=== PATIENT | female | born 1965 | race Caucasian/White ===

== ENCOUNTER 2020-03-04 00:48 | Outpatient (CLI) | payer BC, SELFPAY ==
[2020-03-04 18:19] LABS: SARS-CoV-2 RNA PCR Negative
== END 2020-03-04 00:49 | disposition home or self-care (01) ==
LOC: ANHCOVIDDT 00:48
PROVIDERS: PCP Family Medicine; Visit Provider Internal Medicine Gastroenterology
DX: Z01.812 Encounter for preprocedural laboratory examination (principal); Z20.828 Contact with and (suspected) exposure to other viral communicable diseases
CPT/HCPCS: 87635; C9803; U0003

== ENCOUNTER 2020-03-06 01:17 | Day surgery (SDC) | payer BC, SELFPAY ==
[2020-02-27 11:02] VITALS: BMI 28.0
[2020-03-06 08:04] VITALS: BP 134/70; PULSE 65; RESP 18; TEMP 36.6; O2SAT 99; BMI 26.9
[2020-03-06 08:29] LABS: Glucose Point of Care 167 (65-105)
[2020-03-06] MEDS: LACTATED RINGERS 1,000 ML 150 ML IV CONT (08:31)
--- NOTE | 2020-03-06 08:42 | WPDGICN ---
Assessment and Plan Assessment and plan (1) History of colon polyps: Code(s): Z86.010 - Personal history of colonic polyps Status: Acute Assessment and Plan: patient has a history of multiple colon polyps most of which were adenomatous in 2017. She presents today for surveillance colonoscopy 3 years to later. Plan is for high-fiber diet. Repeat colonoscopy now and at intervals in the future. Family members are also encouraged to seek screening. GI Consult Note Consult date/time: 03/06/20 08:42 HPI: Mariam Miller is a 54 year old female Seen in evaluation at the request of Dr. Faustino Gallardo. patient presents for neoplasia screening. She has a history of adenomatous colon polyps removed from the colon 3 years ago. Her current weight appetite bowel movements are normal. She denies abdominal pain. She has had no recent bleeding. Her family history is noncontributory. Review of Systems Review of Systems: All systems reviewed & are unremarkable except as noted in HPI and below Meds Home Medications and Allergies Home Medications Medication Instructions Recorded Confirmed Type atorvastatin 10 mg PO DAILY 02/27/20 02/27/20 History cetirizine [Zyrtec] 10 mg PO DAILY 02/27/20 02/27/20 History lisinopril 20 mg PO DAILY 02/27/20 02/27/20 History meloxicam 15 mg PO DAILY PRN 02/27/20 02/27/20 History metformin 500 mg PO BID 02/27/20 02/27/20 History paroxetine HCl 25 mg PO DAILY 02/27/20 02/27/20 History Allergies Allergy/AdvReac Type Severity Reaction Status Date / Time No Known Allergies Allergy Verified 03/06/20 08:15 Vital Signs Vital Signs - 24 hr 03/06/20 08:04 Temperature 97.8 F Pulse Rate 65 Respiratory Rate 18 Blood Pressure 134/70 Pulse Oximetry 99 Exam Narrative: Exam Narrative: Physical exam reveals patient to be alert. Vital signs stable. HEENT exam unremarkable. Lungs are clear to auscultation and percussion. Heart is without murmur or extra sounds. Abdominal exam bowel sounds are present soft nontender with no hepatosplenomegaly. Digital external rectal exam is normal
--- NOTE | 2020-03-06 08:48 | WPDANESEPPF ---
Anes - Initial Pre Proc Eval Procedure: Operation Date: 03/06/20 09:00 Proposed Procedures p Screening Colonoscopy - Roland Boo MD Date/Time: 03/06/20 08:48 Surgeon: Roland Boo MD Pre Op Diagnosis: Neoplasm Screening/ Hx Colon Polyps Patient Data Age: 54 Gender: F Height: 5 ft Weight: 62.5 kg Last Vital Signs Temp 97.8 F 03/06/20 08:04 Pulse 65 03/06/20 08:04 Resp 18 03/06/20 08:04 BP 134/70 03/06/20 08:04 Pulse Ox 99 03/06/20 08:04 Allergies Allergy/AdvReac Type Severity Reaction Status Date / Time No Known Allergies Allergy Verified 03/06/20 08:15 Home Medications Medication Instructions Recorded Confirmed Type atorvastatin 10 mg PO DAILY 02/27/20 02/27/20 History cetirizine [Zyrtec] 10 mg PO DAILY 02/27/20 02/27/20 History lisinopril 20 mg PO DAILY 02/27/20 02/27/20 History meloxicam 15 mg PO DAILY PRN 02/27/20 02/27/20 History metformin 500 mg PO BID 02/27/20 02/27/20 History paroxetine HCl 25 mg PO DAILY 02/27/20 02/27/20 History Laboratory Tests 03/06/20 08:28 POC Capillary Glucose 167 mg/dl H mg/dl (65-105) Patient hx anesthesia problems: none Family hx anesthesia problems: none PMFSH Past Medical History Medical History (Updated 03/06/20 @ 08:48 by Perez Avila MD) Anxiety Diabetes Hyperlipidemia Hypertension Anes - Eval Final PreProcedure Day of Procedure 03/06/20 08:48 Patient weight: normal Heart: regular rate and rhythm Lungs: clear to auscultation Airway: Mallampati scale class II Neurological: alert and oriented Last oral intake: >/= 8 hours ASA classification: II Emergent: no Anesthetic plan: proceed Anesthesia type and monitoring: general GIVS and standard monitoring Informed Consent: The patient's anesthetic plan and its attendant risks and benefits were discussed with the patient/family/POA. Questions were solicited and answers provided to the satisfaction of the patient/family/POA.
[2020-03-06 09:28] VITALS: BP 100/66; PULSE 78; RESP 16; O2SAT 97
[2020-03-06 09:38] VITALS: BP 112/77; PULSE 63; RESP 16; O2SAT 98
[2020-03-06 09:48] VITALS: BP 130/76; PULSE 75; RESP 16; O2SAT 100
== END 2020-03-06 10:05 | disposition home or self-care (01) ==
PROVIDERS: PCP Family Medicine; Visit Provider Internal Medicine Gastroenterology
PROC: 0DJD8ZZ Inspection of Lower Intestinal Tract, Via Natural or Artificial Opening Endoscopic (ICD-10-PCS; CPT 45378; principal; 2020-03-06 09:00)
DX: Z12.11 Encounter for screening for malignant neoplasm of colon (principal); D12.1 Benign neoplasm of appendix; D12.3 Benign neoplasm of transverse colon; K63.5 Polyp of colon; K64.8 Other hemorrhoids; I10 Essential (primary) hypertension; E78.5 Hyperlipidemia, unspecified; E11.9 Type 2 diabetes mellitus without complications; Z79.84 Long term (current) use of oral hypoglycemic drugs; F41.9 Anxiety disorder, unspecified; Z79.899 Other long term (current) drug therapy
CPT/HCPCS: 45385; 88305; J2704; J7120

== ENCOUNTER → 2020-10-20 00:27 | Outpatient (CLI) | payer BC, SELFPAY ==
[2020-10-20 20:45] LABS: SARS-CoV-2 RNA PCR Negative
== END ==
PROVIDERS: PCP Family Medicine; Visit Provider Internal Medicine Gastroenterology
DX: Z01.812 Encounter for preprocedural laboratory examination (principal); Z20.822 Contact with and (suspected) exposure to COVID-19
CPT/HCPCS: C9803; U0003; U0005

== ENCOUNTER 2020-10-23 00:35 | Day surgery (SDC) | payer BC, SELFPAY ==
[2020-10-13 13:18] VITALS: BMI 27.3
[2020-10-23 07:27] VITALS: BP 130/73; PULSE 88; RESP 16; TEMP 36.1; O2SAT 99; BMI 27.6
--- NOTE | 2020-10-23 07:29 | PM.HPGS ---
History of Present Illness History of Present Illness Consent: Risks, benefits, and alternatives have been discussed and questions answered. Patient agrees to proceed with procedure. Chief complaint: neoplasm screening, hx colon polyps Narrative: Mariam iMller is a 55 year old female who had multiple polyps removed fast year. One polyp was not completely removed and she returns now for definitive resection Review of Systems Review of Systems: All systems reviewed & are unremarkable except as noted in HPI and below PMFSH Past Medical History Medical History Anxiety Diabetes Hyperlipidemia Hypertension Social History Social History Smoking packs per day: 1 Smoking cigarettes per day: 20.0 Years smoked: 30 Smoking pack-years: 30.00 Smoking status: Current every day smoker Tobacco type: cigarettes Substance use type: does not use Living arrangements: with family Gender identity (if verbalized by the patient): Female Spiritual care concerns: No Meds Home Medications and Allergies Home Medications Medication Instructions Recorded Confirmed Type atorvastatin 10 mg PO DAILY 02/27/20 10/23/20 History cetirizine [Zyrtec] 10 mg PO DAILY 02/27/20 10/23/20 History lisinopril 20 mg PO DAILY 02/27/20 10/23/20 History meloxicam [Mobic] 15 mg PO DAILY PRN 02/27/20 10/23/20 History metformin 500 mg PO BID 02/27/20 10/23/20 History paroxetine HCl [Paxil CR] 25 mg PO DAILY 02/27/20 10/23/20 History Allergies Allergy/AdvReac Type Severity Reaction Status Date / Time No Known Allergies Allergy Verified 10/23/20 07:14 Exam Resp: Auscultation: clear to auscultation bilaterally Cardio: Rate: regular rate Rhythm: regular rhythm GI: GI Palp: Yes Soft to palpation and No Tenderness to palpation present (GI) Assessment and Plan Assessment and plan (1) History of colon polyps: Code(s): Z86.010 - Personal history of colonic polyps Status: Acute
[2020-10-23] MEDS: LACTATED RINGERS 1,000 ML 150 ML IV CONT (07:39)
[2020-10-23 07:41] LABS: Glucose Point of Care 204 (65-105)
--- NOTE | 2020-10-23 08:10 | WPDANESEPPF ---
Anes - Initial Pre Proc Eval Procedure: Operation Date: 10/23/20 08:30 Proposed Procedures p Screening Colonoscopy - Landon Kong MD Date/Time: 10/23/20 08:10 Surgeon: Landon Kong MD Pre Op Diagnosis: neoplasm screening, hx colon polyps Patient Data Age: 55 Gender: F Height: 5 ft Weight: 64.2 kg Last Vital Signs Temp 97 F L 10/23/20 07:27 Pulse 88 10/23/20 07:27 Resp 16 10/23/20 07:27 BP 130/73 10/23/20 07:27 Pulse Ox 99 10/23/20 07:27 Allergies Allergy/AdvReac Type Severity Reaction Status Date / Time No Known Allergies Allergy Verified 10/23/20 07:14 Home Medications Medication Instructions Recorded Confirmed Type atorvastatin 10 mg PO DAILY 02/27/20 10/23/20 History cetirizine [Zyrtec] 10 mg PO DAILY 02/27/20 10/23/20 History lisinopril 20 mg PO DAILY 02/27/20 10/23/20 History meloxicam [Mobic] 15 mg PO DAILY PRN 02/27/20 10/23/20 History metformin 500 mg PO BID 02/27/20 10/23/20 History paroxetine HCl [Paxil CR] 25 mg PO DAILY 02/27/20 10/23/20 History Laboratory Tests 10/23/20 07:38 POC Capillary Glucose 204 mg/dl H mg/dl (65-105) Patient hx anesthesia problems: none Family hx anesthesia problems: none PMFSH Past Medical History Medical History Anxiety Diabetes Hyperlipidemia Hypertension Social History Social History Smoking packs per day: 1 Smoking cigarettes per day: 20.0 Years smoked: 30 Smoking pack-years: 30.00 Smoking status: Current every day smoker Tobacco type: cigarettes Substance use type: does not use Living arrangements: with family Gender identity (if verbalized by the patient): Female Spiritual care concerns: No Anes - Eval Final PreProcedure Day of Procedure 10/23/20 08:10 Patient weight: overweight Heart: regular rate and rhythm Lungs: clear to auscultation Airway: Mallampati scale class II Neurological: alert and oriented Last oral intake: >/= 8 hours ASA classification: III Emergent: no Anesthetic plan: proceed Anesthesia type and monitoring: general GIVS and standard monitoring Informed Consent: The patient's anesthetic plan and its attendant risks and benefits were discussed with the patient/family/POA. Questions were solicited and answers provided to the satisfaction of the patient/family/POA.
[2020-10-23 08:50] VITALS: BP 85/49; PULSE 77; RESP 17; O2SAT 97
[2020-10-23 09:00] VITALS: BP 109/74; PULSE 73; RESP 16; O2SAT 100
[2020-10-23 09:10] VITALS: BP 146/75; PULSE 68; RESP 16; O2SAT 100
== END 2020-10-23 09:21 | disposition home or self-care (01) ==
PROVIDERS: PCP Family Medicine; Visit Provider Internal Medicine Gastroenterology
PROC: 0DJD8ZZ Inspection of Lower Intestinal Tract, Via Natural or Artificial Opening Endoscopic (ICD-10-PCS; CPT 45378; principal; 2020-10-23 08:30)
DX: Z12.11 Encounter for screening for malignant neoplasm of colon (principal); Z86.010 Personal history of colon polyps; K57.30 Diverticulosis of large intestine without perforation or abscess without bleeding; I10 Essential (primary) hypertension; E11.9 Type 2 diabetes mellitus without complications; E78.5 Hyperlipidemia, unspecified; F17.200 Nicotine dependence, unspecified, uncomplicated; F41.9 Anxiety disorder, unspecified
CPT/HCPCS: 45378; 82948; C9803; J2704; J7120; U0003; U0005

== ENCOUNTER → 2023-03-31 13:13 | Outpatient (CLI) | payer BC, SELFPAY ==
--- NOTE | ~2023-03-31 | MM_ITS ---
EXAMINATION: MM screening júnior BI w shane HISTORY: Screening mammogram TECHNIQUE: Craniocaudal and mediolateral oblique 3-D tomosynthesis images were obtained and synthetic 2-D images were generated. CAD analysis was submitted and interpreted. COMPARISON: 10/06/2017, 05/09/2013 BREAST PARENCHYMAL COMPOSITION:There are scattered areas of fibroglandular density. FINDINGS: No suspicious mass, calcification, or architectural distortion are identified in either naye ast to suggest malignancy. There has been no suspicious interval change. IMPRESSION: No mammographic evidence of malignancy. Recommend routine screening mammography in one year. BI-RADS Category 1: Negative Reviewed, dictated and finalized at location .
== END ==
PROVIDERS: PCP Family Medicine; Visit Provider Physician Assistant
DX: Z12.31 Encounter for screening mammogram for malignant neoplasm of breast (principal)
CPT/HCPCS: 77063; 77067

== ENCOUNTER 2024-01-24 13:06 | Outpatient (CLI) | payer BC, SELFPAY ==
[2024-01-24 13:36] LABS: Basophils Absolute Auto 0.1 K/mm3 (0.0-0.1); Basophils Percent Auto 0.6 % (0.2-1.2); Eosinophils Absolute Auto 0.1 K/mm3 (0-0.3); Eosinophils Percent Auto 1.2 % (0-4.4); Hematocrit 43.3 % (37.0-47.0); Hemoglobin 14.6 g/dL (12.0-15.0); Immature Granulocyte Absolute 0.04 K/mm3 (0.00-0.031); Immature Granulocyte Percent A 0.5 % (0-0.5); Lymphocytes Absolute Auto 2.93 K/mm3 (0.9-3.2); Lymphocytes Percent Auto 34.6 % (18.3-44.2); Mean Corpuscular HGB Conc 33.7 g/dl (32-36); Mean Corpuscular Hemoglobin 31.9 pg (26-34); Mean Corpuscular Volume 94.5 fl (80-100); Mean Platelet Volume 10.8 fl (7.4-10.4); Monocytes Absolute Auto 0.6 K/mm3 (0.1-0.6); Monocytes Percent Auto 7.4 % (2.6-8.5); Neutrophils Absolute Auto 4.7 K/mm3 (1.3-6.7); Neutrophils Percent Auto 55.7 % (45.5-73.1); Platelet Count Result 194 k/mm3 (150-375); Red Blood Count 4.58 M/mm3 (4.2-5.4); Red Cell Distribution Width 12.6 % (11.5-14.5); White Blood Count 8.5 K/mm3 (4.5-10.0)
[2024-01-24 13:49] LABS: Alanine Aminotransferase 32 U/L (6-35); Albumin Level 4.9 g/dL (3.5-5.1); Alkaline Phosphatase 75 U/L (38-126); Anion Gap 14 mmol/L (4-12); Aspartate Amino Transferase 30 U/L (14-36); Bilirubin,Total 0.7 mg/dL (0.2-1.3); Blood Urea Nitrogen 19 mg/dL (7-17); Calcium 8.9 mg/dL (8.4-10.2); Carbon Dioxide 18 mmol/L (22-30); Chloride 105 mmol/L (98-107); Estimated Glomerular Filt Rate > 60; Glucose 150 mg/dL (65-110); Potassium 4.6 mmol/L (3.4-5.0); Sodium 137 mmol/L (137-145)
== END 2024-01-24 13:07 | disposition home or self-care (01) ==
PROVIDERS: PCP Family Medicine; Visit Provider Physician Assistant
DX: R63.4 Abnormal weight loss (principal)
CPT/HCPCS: 36415; 80053; 85025

== ENCOUNTER 2024-04-17 01:08 | Day surgery (SDC) | payer BC, SELFPAY ==
[2024-03-27 14:34] VITALS: BMI 27.2
[2024-04-17 07:19] VITALS: BP 119/73; PULSE 74; RESP 20; TEMP 36.3; O2SAT 100; BMI 26.7
[2024-04-17] MEDS: LACTATED RINGERS 1,000 ML 150 ML IV CONT (07:21)
[2024-04-17 07:33] LABS: Glucose Point of Care 167 mg/dl (65-105)
--- NOTE | 2024-04-17 07:54 | WPDANESEPPF ---
Anes - Initial Pre Proc Eval Procedure: Operation Date: 04/17/24 08:30 Proposed Procedures p Colonoscopy - Braeden Servin MD Date/Time: 04/17/24 07:54 Surgeon: Braeden Servin MD Pre Op Diagnosis: History colon polyps Patient Data Age: 58 Gender: F Height: 1.52 m Weight: 62.2 kg Last Vital Signs Temp 36.3 C L 04/17/24 07:19 Pulse 74 04/17/24 07:19 Resp 20 04/17/24 07:19 BP 119/73 04/17/24 07:19 Pulse Ox 100 04/17/24 07:19 O2 Del Method Room Air 04/17/24 07:19 Allergies Allergy/AdvReac Type Severity Reaction Status Date / Time No Known Allergies Allergy Verified 04/17/24 07:16 Home Medications Medication Instructions Recorded Confirmed Type blood sugar diagnostic (OneTouch #100 ea 01/11/23 03/27/24 Rx Ultra Test strips) cetirizine 10 mg tablet (Zyrtec) 10 mg PO DAILY 01/11/23 04/17/24 History omega-3s 360 zc-hgk-ctr-fish oil 1 cap PO .three times daily #90 01/11/23 04/17/24 Rx 1,200 mg-D3 1,000 unit capsule caps (Fish Oil-Vit D3) azelastine 137 mcg (0.1 %) nasal 137 mcg (0.137 mL) intranasal Q12H 06/08/23 04/17/24 Rx spray #30 mL meloxicam 15 mg tablet See Rx Instructions .Route 09/05/23 04/17/24 Rx .COMPLEX #90 tabs atorvastatin 40 mg tablet 40 mg PO DAILY #90 tabs 10/26/23 04/17/24 Rx lisinopril 20 mg tablet See Rx Instructions .Route 02/28/24 03/27/24 Rx .COMPLEX #90 tabs paroxetine HCl 25 mg See Rx Instructions .Route 02/28/24 03/27/24 Rx tablet,extended release 24 hr .COMPLEX #90 tabs clobetasol 0.05 % scalp solution 1 applic topical PRN PRN Skin 03/27/24 04/17/24 History Irritation metformin 500 mg tablet 500 mg PO BID #180 tabs 04/04/24 04/17/24 Rx Laboratory Tests 04/17/24 07:30 POC Capillary Glucose 167 H mg/dl (65-105) Patient hx anesthesia problems: none Family hx anesthesia problems: none Results Review: All pre-operative results and documents have been reviewed as part of the pre-operative evaluation. [facility] Past Medical History Medical History Allergic rhinitis Anxiety Diabetes mellitus type 2, controlled Hyperlipidemia Hypertension Surgical History Surgical History History of bilateral carpal tunnel release 2003 History of section 1989 History of cholecystectomy 2004 History of hemorrhoidectomy 2000 History of rhinoplasty 1982 Family History Family History Father Diabetes mellitus Mother Alzheimer's dementia Grandparent Alzheimer's dementia Diabetes mellitus Social History Social History Smoking packs per day: 0.5 Smoking cigarettes per day: 10.0 Years smoked: 40 Smoking pack-years: 20.00 Smoking status: Current every day smoker Tobacco type: cigarettes Alcohol intake: current Drinks per week: 10 Substance use: never Substance use type: does not use Lack of Transportation: No Lack of Food: Never True Current Housing: I Have Housing Concerned About Future Housing: No Difficulty Paying Gas/Electric Bills: No Difficulty Paying for Meds: No Currently Unemployed: No Education: High School Diploma/GED Difficulty w/ Childcare or Family Care: No Living arrangements: with family Occupation/Education: occupation Gender identity (if verbalized by the patient): Female Sexual Orientation (if Verbalized by the Patient): Straight or Heterosexual Spiritual care concerns: No Anes - Eval Final PreProcedure Day of Procedure 04/17/24 07:54 Patient weight: overweight Heart: regular rate and rhythm Lungs: clear to auscultation Airway: Mallampati scale class II Neurological: alert and oriented Last oral intake: >/= 8 hours ASA classification: III Emergent: no Anesth
--- NOTE | 2024-04-17 08:08 | PM.HPGS ---
History of Present Illness History of Present Illness Consent: Risks, benefits, and alternatives have been discussed and questions answered. Patient agrees to proceed with procedure. Chief complaint: History colon polyps Narrative: Mariam Miller is a 58 year old female with colon polyp, last colonoscopy 2020 Review of Systems Review of Systems: All systems reviewed & are unremarkable except as noted in HPI and below PMFSH Past Medical History Medical History (Updated 04/17/24 @ 08:09 by Braeden Servin MD) Allergic rhinitis Anxiety Colon polyp Diabetes mellitus type 2, controlled Hyperlipidemia Hypertension Surgical History Surgical History History of bilateral carpal tunnel release 2003 History of section 1989 History of cholecystectomy 2004 History of hemorrhoidectomy 2000 History of rhinoplasty 1981 Family History Family History Father Diabetes mellitus Mother Alzheimer's dementia Grandparent Alzheimer's dementia Diabetes mellitus Social History Social History Smoking packs per day: 0.5 Smoking cigarettes per day: 10.0 Years smoked: 40 Smoking pack-years: 20.00 Smoking status: Current every day smoker Tobacco type: cigarettes Alcohol intake: current Drinks per week: 10 Substance use: never Substance use type: does not use Lack of Transportation: No Lack of Food: Never True Current Housing: I Have Housing Concerned About Future Housing: No Difficulty Paying Gas/Electric Bills: No Difficulty Paying for Meds: No Currently Unemployed: No Education: High School Diploma/GED Difficulty w/ Childcare or Family Care: No Living arrangements: with family Occupation/Education: occupation Gender identity (if verbalized by the patient): Female Sexual Orientation (if Verbalized by the Patient): Straight or Heterosexual Spiritual care concerns: No Meds Home Medications and Allergies Home Medications Medication Instructions Recorded Confirmed Type blood sugar diagnostic (OneTouch #100 ea 01/11/23 03/27/24 Rx Ultra Test strips) cetirizine 10 mg tablet (Zyrtec) 10 mg PO DAILY 01/11/23 04/17/24 History omega-3s 360 hg-kzy-inj-fish oil 1 cap PO .three times daily #90 01/11/23 04/17/24 Rx 1,200 mg-D3 1,000 unit capsule caps (Fish Oil-Vit D3) azelastine 137 mcg (0.1 %) nasal 137 mcg (0.137 mL) intranasal Q12H 06/08/23 04/17/24 Rx spray #30 mL meloxicam 15 mg tablet See Rx Instructions .Route 09/05/23 04/17/24 Rx .COMPLEX #90 tabs atorvastatin 40 mg tablet 40 mg PO DAILY #90 tabs 10/26/23 04/17/24 Rx lisinopril 20 mg tablet See Rx Instructions .Route 02/28/24 03/27/24 Rx .COMPLEX #90 tabs paroxetine HCl 25 mg See Rx Instructions .Route 02/28/24 03/27/24 Rx tablet,extended release 24 hr .COMPLEX #90 tabs clobetasol 0.05 % scalp solution 1 applic topical PRN PRN Skin 03/27/24 04/17/24 History Irritation metformin 500 mg tablet 500 mg PO BID #180 tabs 04/04/24 04/17/24 Rx Allergies Allergy/AdvReac Type Severity Reaction Status Date / Time No Known Allergies Allergy Verified 04/17/24 07:16 Vital Signs Vital Signs - 24 hr 04/17/24 07:19 Temperature 97.3 F L Pulse Rate 74 Respiratory Rate 20 Blood Pressure 119/73 Pulse Oximetry 100 Oxygen Delivery Room Air Exam Const: General: comfortable and no acute distress HENMT: Face/Nose/Sinus: Normal nares present Eyes: General: appearance normal, both eyes and all related structures Neck: Neck: no JVD Resp: Auscultation: clear to auscultation bilaterally Cardio: Rate: regular rate Rhythm: regular rhythm GI: Inspection: non-distended GI Palp: Yes Soft to palpation Skin: General skin exam: normal color Neuro: General: gait normal
[2024-04-17 08:32] VITALS: BP 96/51; PULSE 69; RESP 20; O2SAT 100
[2024-04-17 08:42] VITALS: BP 101/65; PULSE 63; RESP 18; O2SAT 100
[2024-04-17 08:52] VITALS: BP 111/56; PULSE 60; RESP 20; O2SAT 100
[2024-04-17 08:53] LABS: Glucose Point of Care 119 mg/dl (65-105)
== END 2024-04-17 09:06 | disposition home or self-care (01) ==
PROVIDERS: PCP Family Medicine; Referring Provider Internal Medicine Gastroenterology; Visit Provider Internal Medicine Gastroenterology
PROC: 0DJD8ZZ Inspection of Lower Intestinal Tract, Via Natural or Artificial Opening Endoscopic (ICD-10-PCS; CPT 45378; principal; 2024-04-17 08:30)
DX: Z12.11 Encounter for screening for malignant neoplasm of colon (principal); D12.3 Benign neoplasm of transverse colon; D12.4 Benign neoplasm of descending colon; K57.30 Diverticulosis of large intestine without perforation or abscess without bleeding; I10 Essential (primary) hypertension; E11.9 Type 2 diabetes mellitus without complications; E78.5 Hyperlipidemia, unspecified; F41.9 Anxiety disorder, unspecified; F17.210 Nicotine dependence, cigarettes, uncomplicated; Z79.84 Long term (current) use of oral hypoglycemic drugs
CPT/HCPCS: 45385; 82948; 88305; J2003; J2704; J7120

== ENCOUNTER 2024-05-18 19:43 | Emergency (ER) | payer BC, SELFPAY ==
--- NOTE | ~2024-05-18 | XR_ITS ---
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 RESULT: Lines, tubes, and devices: None. Lungs and pleura: Mild scattered reticulonodular opacities. Cardiomediastinal silhouette: Stable. Other: No acute osseous or upper abdominal finding. IMPRESSION: Pulmonary opacities may represent respiratory bronchiolitis in the appropriate clinical context. Reviewed, dictated and finalized at location K. L FLOW MACHINE OPERATOR
--- NOTE | 2024-05-18 19:44 | ED.SOB ---
HPI - SOB/Dyspnea General Chief Complaint: Upper Respiratory Infection Stated Complaint: Trouble Breathing Time Seen by Provider: 05/18/24 19:44 Source: patient Mode of arrival: ambulatory Limitations: no limitations History of Present Illness HPI Narrative: Mariam is a 59-year-old female patient presenting to the clinic today with complaints difficulty breathing. She reports she developed a cough and increased shortness of breath over the past week however has gotten worse tonight. Did a tele health visit yesterday and was prescribed Augmentin but no other medications at that time. She has taken 3 doses of the Augmentin and fell as though her symptoms were worsening tonight and this prompted her to come into the clinic. Reports she is having difficulty speaking due to being out of breath. SpO2 is 96% on room air and patient is afebrile. Patient is a current smoker. Cough is productive- green/brown Related Data Home Medications Medication Instructions Recorded Confirmed cetirizine 10 mg tablet (Zyrtec) 10 mg PO DAILY 01/11/23 04/17/24 clobetasol 0.05 % scalp solution 1 applic topical PRN PRN Skin 03/27/24 04/17/24 Irritation amoxicillin 875 mg-potassium tablet 05/18/24 clavulanate 125 mg tablet Allergies Allergy/AdvReac Type Severity Reaction Status Date / Time No Known Allergies Allergy Verified 05/18/24 19:50 Review of Systems Review of Systems: Pertinent positives per HPI. Patient denies any fever, chills, rash, headache, visual changes, dizziness, chest pain, palpitations, nausea, vomiting, diarrhea, constipation, abdominal pain, or any urinary issues. [facility] Past Medical History Medical History (Updated 05/18/24 @ 20:08 by Sander Barton APRN) Allergic rhinitis Anxiety Colon polyp Diabetes mellitus type 2, controlled Hyperlipidemia Hypertension Surgical History Surgical History History of bilateral carpal tunnel release 2003 History of section 1989 History of cholecystectomy 2004 History of hemorrhoidectomy 2000 History of rhinoplasty 1982 Family History Family History Father Diabetes mellitus Mother Alzheimer's dementia Grandparent Alzheimer's dementia Diabetes mellitus Social History Social History (Reviewed 05/18/24 @ 20:09 by LAKISHA Cavanaugh Smoking packs per day: 0.5 Smoking cigarettes per day: 10.0 Years smoked: 40 Smoking pack-years: 20.00 Smoking status: Current every day smoker Tobacco type: cigarettes Alcohol intake: current Drinks per week: 10 Substance use: never Substance use type: does not use Lack of Transportation: No Lack of Food: Never True Current Housing: I Have Housing Concerned About Future Housing: No Difficulty Paying Gas/Electric Bills: No Difficulty Paying for Meds: No Currently Unemployed: No Education: High School Diploma/GED Difficulty w/ Childcare or Family Care: No Living arrangements: with family Occupation/Education: occupation Gender identity (if verbalized by the patient): Female Sexual Orientation (if Verbalized by the Patient): Straight or Heterosexual Spiritual care concerns: No Comments At the time of my signature, I reviewed and agree with the nursing past medical, surgical, social, and family history. There is no relevant family history pertinent to the patient complaint. Exam Narrative: General: Well-developed, well nourished, acute ill-appearing Head: Normocephalic, atraumatic Eyes: Pupils equally round and reactive to light bilaterally, EOM intact, sclera and conjunctive clear, no discharge, lids normal Ears: TMs intact and clear, ear canals clear, no drainage, grossly hearing normal. Nose: Nares patent, no discharge, no inflammation, no sinus tenderness. Mouth: Oral pharynx without lesions or masses, good dentition, MMM. Neck: Supple, trachea midline, no enlargement of anterior or posterior cervical nodes, no thyroid masses or goiter palpable. Cardio: Regular rate and rhythm, s1 and s2 normal, no murmur appreciated. Resp: Inspiratory and expiratory wheezing, lung sounds tight, no rhonchi, rales,or rubs Course Course Emergency Course: Portions of this record may have been created with voice recognition software. Level of Care: Express Care Visit Vital Signs Vital signs: Vital Signs Temperature 36.2 C L 05/18/24 19:49 Pulse Rate 87 05/18/24 19:49 Respiratory Rate 18 05/18/24 19:49 Blood Pressure 157/75 H 05/18/24 19:49 Pulse Oximetry 96 05/18/24 19:49 Oxygen Delivery Room Air 05/18/24 19:49 Temperature 36.2 C L 05/18/24 19:56 Pulse Rate 87 05/18/24 19:56 Respiratory Rate 18 05/18/24 19:56 Blood Pressure 157/75 H 05/18/24 19:56 Pulse Oximetry 96 05/18/24 19:56 Oxygen Delivery Room Air 05/18/24 19:56 Vital signs reviewed MDM - SOB/Dyspnea MDM Narrative Medical decision making narrative: At the time of visit patient is resting comfortably on the exam table. Patient appears to be nontoxic. Diagnostics: Chest x-ray was performed and shows likely bronchiolitis. Medications: Hand-held neb DuoNeb treatment given in the clinic today. Solu-Medrol 125 IM. Lung sounds improved after DuoNeb treatment and patient feels as though she can take a deep breath now Plan: I suspect patient has bronchitis/bronchiolitis. Prescription for albuterol inhaler and prednisone was sent to the pharmacy. Will have the patient continue the Augmentin. Supportive measures were discussed with the patient and they voiced understanding discharge instructions and agrees to treatment plan. Return precautions reviewed Differential Diagnosis Differential diagnosis: Likely acute exacerbation of chronic obstructive airways disease, congestive heart failure, community acquired pneumonia, asthma with exacerbation and pulmonary embolism Discharge Plan Discharge Clinical Impression: Bronchiolitis Patient Disposition: Home, Self-Care Condition: Stable Instructions: Antibiotic Form, Bronchiolitis (ED) Additional Instructions: Chest x-ray shows bronchiolitis. No sign of pneumonia Hand-held nebulizer-DuoNeb treatment given in the clinic today Solu-Medrol 125 mg IM given in the clinic today Take prescription medications only as prescribed-prednisone and albuterol inhaler Continue taking the Augmentin Stop smoking Increase fluids and stay well hydrated Tylenol/motrin for pain/fever Flonase and OTC antihistamines as directed Vicks vapor rub to open sinuses Sinus rinses for congestion Cepacol spray, cough drops, throat lozenges, warm tea with honey/lemon, gargle salt water to soothe throat BRAT diet for diarrhea Clear liquids x 24 hours then advance as tolerated for nausea/vomiting Go to the ED if you develop a worsening in your condition- high fever not controlled by Tylenol or Motrin, dehydration, weakness, lethargy, shortness of breath, or chest pain. Follow up with your PCP in 3-5 days if symptoms persist. Prescriptions: New prednisone 20 mg tablet 40 mg PO DAILY 5 Days Qty: 10 0RF albuterol sulfate 90 mcg/actuation HFA aerosol inhaler 2 puff inhalation Q4-6H PRN (Reason: shortness of breath or wheezing) 30 Days Qty: 8.5 0RF No Action amoxicillin-pot clavulanate 875-125 mg tablet cetirizine [Zyrtec] 10 mg tablet 10 mg PO DAILY [id number]-[id number]-plu-epa-fish oil-D3 [Fish Oil-Vit D3] 360 mg-1,200 mg -1,000 unit capsule 1 cap PO .three times daily Qty: 90 0RF (DME) OneTouch Ultra Test Strip See Rx Instructions .Route Qty: 100 0RF Rx Instructions: As directed daily clobetasol 0.05 % solution 1 applic topical PRN PRN (Reason: Skin Irritation) meloxicam 15 mg tablet See Rx Instructions .ROUTE .COMPLEX Qty: 90 3RF Dose Instruction: TAKE 1 TABLET DAILY Rx Instructions: TAKE 1 TABLET DAILY atorvastatin 40 mg tablet 40 mg PO DAILY Qty: 90 1RF lisinopril 20 mg tablet See Rx Instructions .ROUTE .COMPLEX Qty: 90 3RF Dose Instruction: TAKE 1 TABLET DAILY Rx Instructions: TAKE 1 TABLET DAILY paroxetine HCl 25 mg tablet extended release 24 hr See Rx Instructions .ROUTE .COMPLEX Qty: 90 3RF Dose Instruction: TAKE 1 TABLET DAILY IN THE MORNING Rx Instructions: TAKE 1 TABLET DAILY IN THE MORNING metformin 500 mg tablet 500 mg PO BID Qty: 180 1RF Follow-up/Referrals: Faustino Gallardo MD [Primary Care Provider] - Time of Disposition: 20:08 Quality NIHSS Nursing Documentation ED NIHSS nursing documentation: reviewed/agree
[2024-05-18 19:49] VITALS: BP 157/75; PULSE 87; RESP 18; TEMP 36.2; O2SAT 96
[2024-05-18 19:56] VITALS: BP 157/75; PULSE 87; RESP 18; TEMP 36.2; O2SAT 96
[2024-05-18] MEDS: IPRATROPIUM 0.5 MG/ALBUTEROL SULFATE 2.5 MG AMPUL.NEB 3 ML INHALATION (20:01)
[2024-05-18] MEDS: methylPREDNISolone SOD SUCC 125 MG VIAL IM (20:06)
== END 2024-05-18 20:18 | disposition home or self-care (01) ==
PROVIDERS: Emergency Provider Nurse Practitioner Family; PCP Family Medicine
DX: J21.9 Acute bronchiolitis, unspecified (principal); F17.210 Nicotine dependence, cigarettes, uncomplicated; E11.9 Type 2 diabetes mellitus without complications; I10 Essential (primary) hypertension; E78.5 Hyperlipidemia, unspecified
CPT/HCPCS: 71046; 96372; 99213; G0463; J2919